=== PATIENT | female | born 1965 | race Hispanic/Latino ===

== ENCOUNTER → 2025-02-27 | Outpatient (CLI) | payer BC ==
--- NOTE | 2025-02-27 15:07 | HMCIMG ---
EXAM: CR right Wrist, 3 View. CLINICAL HISTORY: PAIN IN RIGHT WRIST; CONTUSION OF RIGHT WRIST, INITIAL ENCOUNTER COMPARISON: None provided. FINDINGS: Mildly displaced, comminuted fracture of the proximal fifth metacarpal. Joint spaces remain anatomically aligned. There is associated soft tissue swelling. IMPRESSION: 1. Mildly displaced, comminuted fracture of the proximal right fifth metacarpal with associated soft tissue swelling. /[place]
== END | disposition home or self-care (01) ==
LOC: RAH 13:45
PROVIDERS: ATTEND Clinical Nurse Specialist Family Health
DX: S62.396A Other fracture of fifth metacarpal bone, right hand, initial encounter for closed fracture (principal); S60.211A Contusion of right wrist, initial encounter; M79.89 Other specified soft tissue disorders; M25.531 Pain in right wrist; X58.XXXA Exposure to other specified factors, initial encounter; Y93.89 Activity, other specified; Y92.89 Other specified places as the place of occurrence of the external cause; Y99.8 Other external cause status
CPT/HCPCS: 73110; 73130